=== PATIENT | male | born 1975 | race Caucasian/White ===

== ENCOUNTER → 2016-12-14 | Outpatient (CLI) | payer OTHER ==
--- NOTE | 2016-12-14 09:09 | RAD ---
Right hand, 3 views, 01/14/2017: History: Hand pain and swelling No fracture or dislocation is identified. No destructive bony lesion is seen. There is only minimal spurring at the first CMC joint. No erosive changes are evident. The soft tissues are unremarkable. IMPRESSION: No acute right hand abnormality detected.
== END | disposition home or self-care (01) ==
LOC: DXRADRC 08:39
PROVIDERS: ATTEND Orthopaedic Surgery Sports Medicine
DX: M25.441 Effusion, right hand (principal); M79.641 Pain in right hand
CPT/HCPCS: 73130